=== PATIENT | female | born 1995 | race Caucasian/White ===

== ENCOUNTER → 2016-06-16 | Outpatient (CLI) | payer BC, OTHER ==
[~2016-06-16] MED LIST: ACET-1256 PO; AMPH20TA2 PO; BCPILLS PO; GLUCAGON FOR INJ 1 MG VIAL IM SCH; LEVO125T4 PO; NURSING VERBAL MED ORDER ONE; ZOLP5TAB PO
--- NOTE | 2016-06-16 14:16 | DIAGNOSTIC IMAGING REPORT ---
MR ENTEROGRAPHY CLINICAL HISTORY: Crohn's disease. Diarrhea. Iron deficiency anemia. COMPARISON STUDY: No priors. TECHNIQUE: MR enterography is performed utilizing various T1 and T2-weighted sequences in the axial and coronal planes. Dynamic contrast-enhanced images were acquired following the IV administration of 7 cc of Gadavist. The Examination is compromised by motion artifact. FINDINGS: The liver, gallbladder, spleen, adrenal glands, and pancreas are grossly normal in appearance. The abdominal aorta is normal in caliber. There is no abdominopelvic ascites. No abdominal lymphadenopathy is identified. The bladder, uterus, and adnexa are normal as visualized. There is a long segment of thick-walled and hyperemic appearing small bowel involving distal ileum. The ileocecal junction is not well visualized. The abnormal loop measures at least 15 cm in length. This is located in the deep pelvis on the right and is suboptimally assessed. The appearance is typical for active Crohn's disease. There is no clear evidence of fistula or stricture. No bowel obstruction is identified. There is no evidence of abscess. Lung bases are clear. There is no pleural effusion. IMPRESSION: 1. Findings suggest active Crohn's disease involving a long segment of distal ileum in the right pelvis. 2. There is no bowel obstruction or evidence of stricture/fistula formation. Electronically signed by: Lobo Busby M.D. 06/16/2016 2:14 PM Dictated Date/Time: 06/16/2016 2:02 PM
== END | disposition home or self-care (01) ==
LOC: C.MRI 11:43
PROVIDERS: ATTEND Registered Nurse
DX: E61.1 Iron deficiency (principal); K50.90 Crohn's disease, unspecified, without complications; R19.7 Diarrhea, unspecified; R10.9 Unspecified abdominal pain

== ENCOUNTER 2017-03-30 11:37 | Emergency (ER) | payer BC, OTHER ==
[~2017-03-30] VITALS: Ht 170.2 cm; Wt 70.5 kg
[~2017-03-30 11:37] MED LIST changes: -GLUCAGON FOR INJ 1 MG VIAL IM SCH; -LEVO125T4 PO; +LEVO125T5 PO; -NURSING VERBAL MED ORDER ONE
[2017-03-30 11:55] VITALS: TEMP 37.2; Ht 170.2 cm; Wt 70.5 kg
[2017-03-30] MEDS ORDERED: VNTHFA/IN INH (12:33)
[2017-03-30] MEDS ORDERED: CEPH500C PO (12:33)
[2017-03-30 12:46] VITALS: BP 120/66; PULSE 94; O2SAT 100
--- NOTE | 2017-03-30 17:21 | EMERGENCY ROOM VISIT NOTE ---
History First contact with patient: 12:23 Chief Complaint: INFECTION Stated Complaint: INFECTION UNDER FINGERNAIL History of Present Illness The patient is a 21 year old female who presents to the Emergency Room with complaints of a possible developing infection under her left thumbnail. The patient reports that she cut her finger on a soy sauce container yesterday. The patient is concerned because she is on Entyvio as a Crohn's patient. The patient reports that she does get infections easily, and in fact has had prior finger infections. She has not noticed any pain extending into the base of the thumb or wrist region. She denies paresthesias or numbness. The patient is [id number], and rates her pain a 4 out of 10. The patient is also requesting a prescription for an albuterol inhaler. She does have a sporadic history of exercise-induced asthma. She was working out at the gym this morning when she started to develop wheezing. One of the weight trainer suggested that she take albuterol before exercising. The patient denies any current shortness of breath, wheezing, fatigue, chest pain, chest tightness or other concerning symptoms. The patient does not have any albuterol at home as it has been several years since she last experienced exercise-induced asthma. Review of Systems 10 system review was performed and was negative except for pertinent positives and negatives as indicated in history of present illness Past Medical/Surgical History Medical Problems: (1) Crohn's disease (2) Right ovarian cyst Family History FHx: diabetes FHx: heart disease FHx: hypertension Social History Smoking Status: Never Smoker Alcohol Use: occasionally Marital Status: single Housing Status: lives with family Occupation Status: [employer] student Current/Historical Medications Scheduled Albuterol Hfa (Ventolin Hfa), 2 PUFFS INH UD Control Pills ( Control Pills), 1 TAB PO HS Cephalexin Monohydrate (Keflex), 500 MG PO TID Levothyroxine Sodium (Levothyroxine Sodium), 1 TAB PO DAILY Scheduled PRN Acetaminophen (Tylenol), 1,000 MG PO DIRECTED PRN for Pain Amphetamine-Dextroamphetamine 20MG (Adderall 20MG), 20 MG PO BID PRN for SCHOOL Zolpidem Tartrate (Ambien), 5 MG PO HS PRN for Insomnia Physical Exam Vital Signs Date Time Temp Pulse Resp B/P (MAP) Pulse Ox O2 Delivery O2 Flow Rate FiO2 10/20/17 12:46 94 16 120/66 100 03/30/17 11:55 37.2 109 18 120/75 97 Room Air Physical Exam CONSTITUTIONAL: Healthy and well nourished. HEENT: Normocephalic, atraumatic. Pupils equal, round and reactive. NECK: Full active range of motion without discomfort. CARDIOVASCULAR: Regular rate and rhythm without murmurs, rubs or gallops. RESPIRATORY: No expiratory wheezing, crackles or rhonchi noted on auscultation. MUSCULOSKELETAL: Examination of the left thumb shows evidence for a well- healing prior laceration to the tissue under the free edge of the nail plate. I do not appreciate any significant erythema, fluctuance or edema. She does have tenderness to palpation of the fingertip. Capillary refill is less than 2 seconds. INTEGUMENTARY: No rash or other significant dermatologic conditions noted. NEUROLOGIC: Cranial nerves II-XII grossly intact. No focal neurologic deficits noted. Medical Decision & Procedures ED Course Patient history and physical exam were performed. Nurse's notes were reviewed. The patient received prescriptions for Keflex 500 mg 3 times a day 7 days, and a Ventolin metered-dose inhaler. She was instructed to return for any worsening symptoms consistent with infection or acute asthma exacerbation. She was instructed to administer her albuterol one hour before exercise as needed for wheezing. Return to the emergency department for any worsening symptoms. The patient was happy with plan of care, voiced understanding of all discharge instructions, and denied any pain or respiratory problems at the time of discharge. Medical Decision Medication Reconcilliation Current Medication List: was personally reviewed by wv Blood Pressure Screening Patient's blood pressure: Normal blood pressure Impression Primary Impression: Puncture wound of left thumb Additional Impression: Mild exercise-induced asthma Departure Information Dispostion Home / Self-Care Condition GOOD Prescriptions Cephalexin Monohydrate (Keflex) 500 Mg Cap 500 MG PO TID for 7 Days, #21 CAP Prov: Damian Davis PA 03/30/17 Albuterol Hfa (VENTOLIN HFA) 200 Puffs/12532 Mcg Aers 2 PUFFS INH UD, #1 INHALER Administer 2 puffs one hour before exercise Prov: Damian Davis PA 03/30/17 Forms HOME CARE DOCUMENTATION FORM, IMPORTANT VISIT INFORMATION Patient Instructions [facility], Albuterol inhalation aerosol Additional Instructions Complete all Keflex antibiotics as prescribed. Watch for any signs of developing/worsening infection. Administer albuterol 2 puffs one hour before exercise. Follow-up with your family doctor as needed for any persistent asthma symptoms. Problem Qualifiers Primary Impression: Puncture wound of left thumb Encounter type: initial encounter Qualified Codes: S61.032A - Puncture wound without foreign body of left thumb without damage to nail, initial encounter
== END 2017-03-30 12:47 | disposition home or self-care (01) ==
LOC: C.EDB 11:38 → C.EDD 12:47
DX: S61.032A Puncture wound without foreign body of left thumb without damage to nail, initial encounter (principal); W45.8XXA Other foreign body or object entering through skin, initial encounter; J45.909 Unspecified asthma, uncomplicated; K50.90 Crohn's disease, unspecified, without complications; N83.201 Unspecified ovarian cyst, right side; Z79.3 Long term (current) use of hormonal contraceptives; Z83.3 Family history of diabetes mellitus; Z82.49 Family history of ischemic heart disease and other diseases of the circulatory system